=== PATIENT | female | born 1940 | race Caucasian/White ===

== ENCOUNTER → 2016-09-15 | Outpatient (CLI) | payer OTHER, MEDICARE ==
[2016-04-27 10:54] VITALS: BP 152/83
--- NOTE | 2016-09-18 11:25 | MRI ---
HISTORY: Left sciatica, low back pain Study: MRI lumbar spine without contrast Comparison: February 02, 2014 Technique: Multiplanar multi-sequence MRI of the lumbar spine was obtained. Sagittal T1, sagittal T 2, and stir weighted images, axial T1, and axial T2 images were obtained. Findings: There is a compression fracture of L2 which is old. The lumbar spine demonstrates normal alignment w ith the expected signal characteristics of the bone marrow. The conus of the cord terminates normal ly. T12 -- L1: No evidence for compressive disc disease. Neural foramina are patent. The joints are norm al. L1 -- L2: There is mild concentric disc bulging which contributes along with bilateral facet arthrop athy to mild lateral recess narrowing bilaterally. L2 -- L3: There is mild concentric disc bulging which contributes along with bilateral facet arthrop athy to mild lateral recess narrowing bilaterally right greater than left. L3 -- L4: No evidence for compressive disc disease. The neural foramina are patent. Mild facet arthr opathy is present. L4 -- L5: Mild concentric disc bulging is present. It contributes along with bilateral facet arthrop athy to mild lateral recess narrowing bilaterally. L5 -- S1: Broad-based disk bulging is present. It contributes along with facet arthropathy to mild l ateral recess narrowing on the right peer E there is a focal left lateral disc protrusion which cont ributes to significant lateral recess and foraminal narrowing on the left where it abuts the right n erve root ganglion. IMPRESSION: As above Reported By:
--- NOTE | 2016-09-19 09:38 | MRI ---
MR left hip without contrast Indication: Lower back pain radiating to the left hip. Comparison: January 23, 2014 MR pelvis. Technique: Multiplanar multi sequence imaging through the left hip without contrast. Findings: Mild symphysis pubis DJD is noted. Mild bilateral hip joint degenerative changes noted. Mi ld SI joint and lumbar spine DJD seen, with disc space narrowing partially visualize but worse at L5 -S1. Deep soft tissues of the pelvis appear normal. Neurovascular structures are normal. Fraying of the right superior acetabular labrum suspected. The left acetabulum labrum is relatively intact. Mil d bilateral gluteus medius tendinosis. The hamstring tendons are intact. Impression: 1. Mild bilateral hip joint degenerative change, gluteus medius tendinosis and trace greater trochan teric bursitis. 2. Probable tear of the right superior acetabular labrum. Chronic fraying of the left anterior and s uperior acetabular labrum without displaced tear or paralabral cyst. 3. Partially visualized SI joint and lumbar spine degenerative changes. Reported By:
== END | disposition home or self-care (01) ==
LOC: RAD 12:38
PROVIDERS: ATTEND Internal Medicine
DX: M51.26 Other intervertebral disc displacement, lumbar region (principal); M51.27 Other intervertebral disc displacement, lumbosacral region; M25.552 Pain in left hip
CPT/HCPCS: 72148; 73721

== ENCOUNTER → 2016-11-27 | Outpatient (CLI) | payer OTHER, MEDICARE ==
[2016-04-27 10:54] VITALS: BP 152/83
--- NOTE | 2016-11-27 17:17 | MG ---
Examination: Bilateral screening mammogram. Clinical history: Routine screening. Technique: Digital CC and MLO views of both breasts were obtained. Computer aided detection analysis was performed and used during the interpretation. Comparison: 11/25/2015. Findings: The breasts are composed of scattered fibroglandular densities. Benign-appearing calcifications and v ascular calcifications are noted in the breasts bilaterally. No suspicious mass, area of architectural distortion or suspicious cluster of microcalcifications is noted. Impression: 1. No mammographic evidence of malignancy. BI-RADS category 2-benign findings. Recommend routine annual screening mammogram. Diagnostic CAD was utilized and reviewed. * 0 (ZERO) - ASSESSMENT INCOMPLETE; ADDITIONAL IMAGING IS NEEDED. * 0C - ASSESSMENT INCOMPLETE, NEEDS ADDITIONAL IMAGING EVALUATION AND/OR PRIOR MAMMOGRAMS FOR COMPARI SON. * 1/1 (ONE) - NEGATIVE. * 2/II (TWO) - BENIGN FINDINGS. * 3/III (THREE) - PROBABLY BENIGN FINDING; SHORT INTERVAL FOLLOW-UP SUGGESTED. * 4/IV (FOUR) - SUSPICIOUS ABNORMALITY; BIOPSY SHOULD BE CONSIDERED. * 5/V - HIGHLY SUSPICIOUS OF MALIGNANCY; BIOPSY SHOULD BE PERFORMED. * 6/ - KNOWN BIOPSY PROVEN MALIGNANCY-APPROPRIATE ACTION SHOULD BE TAKEN. A NEGATIVE X-RAY REPORT SHOULD NOT DELAY BIOPSY IF A DOMINANT OR CLINICALLY SUSPICIOUS MASS IS PRESENT; 4 TO 8 PERCENT OF CANCERS ARE NOT IDENTIFIED BY X-RAY. A NEGATIVE REPORT MAY REINFORCE THE CLINICAL IMPRESSION. ADENOSIS AND DENSE BREASTS MAY OBSCURE AN UNDERLYING NEOPLASM. Reported By:
== END ==
LOC: RAD 09:32
PROVIDERS: ATTEND Specialist
DX: Z12.31 Encounter for screening mammogram for malignant neoplasm of breast (principal)
CPT/HCPCS: 77067

== ENCOUNTER 2016-11-30 07:09 | Day surgery (SDC) | payer OTHER, MEDICARE ==
[2016-11-30] MEDS ORDERED: D5 LR 1000 ML 1,000 ML IV ONE (07:15)
[2016-11-30] MEDS ORDERED: DIPRIVAN VIAL 20 ML ONE (08:51)
[2016-11-30 09:39] VITALS: BP 142/77
== END 2016-11-30 09:35 | disposition home or self-care (01) ==
LOC: SURG1 07:09
PROVIDERS: ATTEND Internal Medicine Gastroenterology
PROC: 0DBE8ZX Excision of Large Intestine, Via Natural or Artificial Opening Endoscopic, Diagnostic (ICD-10-PCS; principal; 2016-11-30 12:00)
PROC: 0DJD8ZZ Inspection of Lower Intestinal Tract, Via Natural or Artificial Opening Endoscopic (ICD-10-PCS; principal; 2016-11-30 12:00)
DX: R19.4 Change in bowel habit (principal); D50.8 Other iron deficiency anemias; K57.30 Diverticulosis of large intestine without perforation or abscess without bleeding; K64.0 First degree hemorrhoids
CPT/HCPCS: 99100; A4217; J3490; J7120

== ENCOUNTER 2017-07-17 20:39 | Emergency (ER) | payer OTHER, MEDICARE ==
[2017-07-17] MEDS ORDERED: ADACEL TDaP IM ONE ×2 (20:53→21:32)
--- NOTE | 2017-07-17 20:55 | DR.LACERAT ---
HPI - Time Seen Time seen: 20:55 - Primary Care Physician Primary Care Physician: CRIS - HPI Comment HPI Comment: DENIES NECK PAIN. HAVE HEADACHE. TD NOT UTD. - Complaints Chief Complaint Doctors Comments: FELL AT HOME TONIGHT WHEN SHE MISS A STEP. HIT RIGHT FOREHEAD. 2CM LAC RT EYEBROW. Chief Complaint:: "I MISSED THE LAST STEP WALKING FROM THE HOUSE AND FELL ONTO THE CONCRETE." THE RIGHT SIDE OF MY FACE HIT. PATIENT DENIES ANY LOC. NOTED SMALL LAC TO RIGHT OVER THE EYEBROW/CORNER OF EYE. MINIMAL AMOUNT OF BRUISING NOTED. - Reviewed Nurses Notes Reviewed: Yes - Source History Provided: Patient - Mode of Arrival Mode of Arrival: Wheelchair - Timing Onset of Chief Complaint: 07/17/17 - Context Mechanism: Fall Tetanus Vaccination: No - Severity Pain Severity: Moderate Bleeding:: Controlled - Associated Signs and Symptoms Associated Signs and Symptoms: None PMH - PMH Past Medical History: Yes Past Medical History: Anemia, Arthritis, Depression, Dyslipidemia, GERD, Hypertension Past Medical History Comment: HISTORY OF LUNG CA Past Surgical History: Yes Surgical History: Hysterectomy, Ortho Surgery Past Surgical History Comment: BILATERAL KNEE REPLACEMENT, BILATERAL HAND SURGERY (JOINTS REPLACED), BACK SURGERY, LEFT LOWER LOBE OF LUNG REMOVED DUE TO CANCER - Family History History of Family Medical Conditions: Yes Family Medical History: Hypertension - Social History Does patient currently use any type of tobacco product: No Have you used tobacco products in the last 12 months: No Type of Tobacco Use: None Does any household member use tobacco: No Alcohol Use: None Do you use any recreational Drugs:: No Lives Where: Home - infectious screening Have you traveled outside the country in the last 6 months?: No Isolation: Standard ROS - Review of Systems Constitutional: No Symptoms Reported. negative: Chills, Fever, Weakness, Fatigue Eyes: No Symptoms Reported. negative: Eye Pain, Blurred Vision, Discharge, Photophobia ENTM: No Symptoms Reported. negative: Ear Discharge, Nose Discharge, Nose Congestion, Throat Pain Respiratoy: No Symptoms Reported. negative: Productive Cough, Non-Productive Cough, Short of Breath, Wheezing, Hemoptysis Cardiovascular: No Symptoms Reported Gastrointestinal/Abdominal: No Symptoms Reported Genitourinary: No Symptoms Reported Neurological: No Symptoms Reported Musculoskeletal: No Symptoms Reported Integumentary: Other (2CM LAC RT EYEBROW.) Hematologic/Lymphatic: No Symptoms Reported Endocrine: No Symptoms Reported All Other Systems: Reviewed and Negative PE - Vital Signs Vitals: Temperature 98.1 F Pulse Rate [Right Brachial] 68 Pulse Rate 83 Respiratory Rate 16 Blood Pressure [Left Arm] 157/78 Blood Pressure [Right Arm] 149/67 Blood Pressure 186/83 O2 Sat by Pulse Oximetry 98 - General Limitations: No Limitations General Appearance: Alert - Head Head Exam: Other (2CM LAC RT EYEBROW) - Eyes Eye exam: PERRL, EOMI, Periorbital Tenderness (RT). negative: Conjunctival Injection, Periorbital Swelling - ENT ENT Exam: Normal External Ear Exam - Neck Neck Exam: Trachea Midline - Chest Chest Inspection: Symmetric Chest Wall Rise - Respiratory Respiratory Exam: Normal Lung Sounds Bilat Respiratory Exam: Bilateral Clear to Auscultation - Cardiovascular Cardiovascular Exam: Regular Rate, Normal Rhythm, Normal Heart Sounds - Abdominal Exam Abdominal Exam: Normal Bowel Sounds, Soft. negative: Tenderness - Extremities Extremities Exam: Normal Inspection - Back Back Exam: Normal Inspection - Neurologic Neurological Exam: Alert, Oriented X3 - Psychiatric Psychiatric Exam: Normal Affect, Normal Mood - Skin Skin Exam: Erythema Type of Lesion: Laceration (2CM LAC RT EYEBROW.) MDM - Additional Information Obtained Additional Information Obtained From: Family - Differential Diagnosis Differential Diagnosis: Contusion, Laceration, Fracture Course - Treatment Treatment: SEE ORDERS. - Education/Counseling Education/Counseling: Patient, Family, Education Educated On: Diagnosis, Needs for Follow Up ROR - XRAY XRAY Interpreted by: Radiologist XRAY Findings: REPORT DISCUSS WITH PATIENT AND FAMILY. Procedures - Laceration/Wound Repair Right Face Wound Length (cm): 2 Wound's Depth, Shape: Linear Wound Explored: clean Betadine Prep?: Yes Anesthesia: 1% Lidocaine Volume Anesthetic (ccs): 2 Wound Debrided: moderate Wound Repaired With: sutures Suture Size/Type: 4:0, [place] Number of Sutures: 5 Layer Closure?: No Sterile Dressing Applied?: Yes Splint Applied?: No Sling Applied?: No - Diagnosis Discharge Problem: Laceration of right eyebrow Qualifiers: Encounter type: initial encounter Qualified Code(s): S01.111A - Laceration without foreign body of right eyelid and periocular area, initial encounter - Discharge Plan Disposition: 01 HOME, SELF-CARE Condition: Stable - Follow ups/Referrals Follow ups/Referrals: Gilberto Hennessy [Primary Care Provider] - 3 days - Instructions Instructions: Laceration Care, Adult, [id number] Additional Instructions: RETURN TO ED IN 7 TO 10 DAYS. SUTURE OUT IN ONE WEEK.
[2017-07-17 20:56] VITALS: BMI 25.0
[2017-07-17] MEDS ORDERED: XYLOCAINE 1 % (PLAIN) ONE (21:29)
[2017-07-17] MEDS ORDERED: HYDROGEN PEROXIDE 3% ONE (21:33)
--- NOTE | 2017-07-17 21:37 | CT ---
HISTORY: Fall, right supraorbital laceration Study: CT brain without contrast Comparison: 04/21/2014 Technique: Multiple axial images of the brain were obtained from the skull base to the vertex without administra tion of IV contrast. Dose reduction techniques including Automated Exposure Control (AEC) and adjust ment of mA and kV were utilized. Findings: The brain parenchyma is within normal limits for patient's age. No evidence of acute hemorrhage, mid line shift, mass effect or abnormal extra-axial fluid collection. The ventricular system is symmetri c and nondilated. The soft tissues and osseous structures are unremarkable. The visualized paranasal sinuses are clear. IMPRESSION: 1.No acute intracranial abnormality. Reported By:
[2017-07-17 21:47] VITALS: BP 149/67
[2017-07-17] MEDS ORDERED: NEOSPORIN OINT ONE (21:50)
== END 2017-07-17 21:55 | disposition home or self-care (01) ==
LOC: ER 20:48
PROC: 0WQ2XZZ Repair Face, External Approach (ICD-10-PCS; principal; 2017-07-17)
DX: S01.111A Laceration without foreign body of right eyelid and periocular area, initial encounter (principal); W01.198A Fall on same level from slipping, tripping and stumbling with subsequent striking against other object, initial encounter; Y92.009 Unspecified place in unspecified non-institutional (private) residence as the place of occurrence of the external cause
CPT/HCPCS: 70450; 90471; 99283; J2001

== ENCOUNTER 2022-04-02 20:09 | Observation (INO) ==
--- NOTE | 2022-04-02 21:18 | CT ---
HISTORYFALL 4 DAYS AGOSTUDYHEAD (TRAUMA)COMPARISONApril 2017.TECHNIQUECT scan of the brain was obtained from skull base to vertex without contrast. Dose reduction techniques were utilized.Contrast: NoneFINDINGSThere is a large midline posterior parietal subgaleal hematoma and scalp hemorrhagic contusion. There is diffuse cerebral and cerebellar volume loss. There is scattered patchy hypodensity in the hemispheric white matter. While these are nonspecific findings, this most likely represents microvascular ischemic disease changes. There is no evidence of intracranial hemorrhage or mass-effect. No extra-axial fluid collections are identified.There are extensive atherosclerotic changes noted of the cavernous carotid arteries.Skull base and calvarium are intact. Paranasal sinuses are clear.IMPRESSIONLarge midline posterior parietal subgaleal hematoma and scalp hemorrhagic contusion. No evidence of acute intracranial pathology. Diffuse generalized cerebral atrophy. Microvascular ischemic disease changes.Electronically signed by: Saundra Soares (Apr 02, 2022 21:17:21)
--- NOTE | 2022-04-02 21:40 | CT ---
EXAM: CT ABDOMEN AND PELVIS WITHOUT INTRAVENOUS CONTRASTHISTORY: Pain. Fall injury 4 days ago.TECHNIQUE: Spiral axial CT images are obtained through the abdomen and pelvis without the administration of intravenous contrast. Additional coronal and sagittal reformatted images are reconstructed.DOSIMETRY: Total DLP 353.49 mGycm; CTDI 4.48 mGyCOMPARISON: CT abdomen pelvis dated April 15, 2019.FINDINGS:ABDOMINAL/PELVIS WALL: There is interval appearance of a large, approximately 25 cm CC by up to 4.1 cm AP by up to 12 cm transverse, left rectus sheath hematoma.GASTROINTESTINAL TRACT: There is no evidence for bowel herniation, bowel obstruction, colitis or diverticulitis. A normal-appearing appendix is seen. Abundant fecal material is seen within the right-sided large bowel loops and rectum; rule out constipation.GENITOURINARY SYSTEM: There are stable bilateral parapelvic renal cysts. The kidneys are otherwise unremarkable. There is no ureteral calculus or stigmata of obstructive uropathy. The urinary bladder is grossly unremarkable for a non-dedicated exam.CT ABDOMEN: The liver, spleen, pancreas, adrenal glands, gallbladder, aorta, and inferior vena cava are within normal limits for a noncontrast CT scan. There is no intra-abdominal or retroperitoneal lymphadenopathy, free fluid, or free air seen. No abdominal herniation is noted.CT PELVIS: No pelvic sidewall or inguinal lymphadenopathy is seen. No inguinal herniation is noted. No free fluid or free air is seen.BONES AND JOINTS: There is a chronic stable gallstone/mild superior endplate compression fracture of the L2 vertebral body. Multilevel DDD is seen in the distal thoracic and lumbar spine. The visualized bony structures are otherwise within normal limits.LUNG BASES: The lung bases are clear.IMPRESSION:1. Interval appearance of a large, approximately 25 cm CC by up to 4.1 cm AP by up to 12 cm transverse, left rectus sheath hematoma.2. No gross acute intra-abdominal/pelvic abnormality seen.3. No evidence for renal stone disease or obstructive uropathy.4. No evidence for acute appendicitis, bowel herniation/obstruction, colitis or diverticulitis seen.5. Abundant fecal material is seen within the right-sided large bowel loops and rectum; rule out constipation.6. No free fluid, free air, mass lesions, or lymphadenopathy seen.Electronically signed by: Johnnie Wang (Apr 02, 2022 21:39:06)
[2022-04-02] MEDS ORDERED: MORPHINE SULFATE INJ 2 MG INJ IM ONE (21:43)
[2022-04-02] MEDS ORDERED: MORPHINE SULFATE INJ 2 MG INJ ONE (21:45)
--- NOTE | 2022-04-02 21:59 | DR.EXTPAIN ---
HPI Time seen Time Seen by Provider: 04/02/22 21:59 PCP Primary Care Physician: KRISTINA CHOWDHURY HPI Comment HPI Comment: A 81 y/o female presenting with c/o Lt. lower ribarea pain. SHe had fallen at home on Sunday03/29/22. She states that she fell on her back, struck her head on the floor and her insides feel sore. She was poiting to her Lt. lower/lowest ribs laterally. She denies LOC. Complaint/Symptoms Chief Complaint:: PT AMBULATORY IN ED WITH C/O 8/10 "SHOOTING" LEFT RIB AREA PAIN THAT BECAME "UNBEARABLE" AROUND 1700 TODAY. PT STATES THAT ON Sunday03/29/22 SHE HAD A "BAD FALL" AND FELL FLAT ON HER BACK AND HER "INSIDES ARE SORE". PT DENIES DIRECT TRAUMA TO RIB AREA. PT DID HIT HEAD ON FLOOR AND NOW HAS KNOT ON BACK OF HEAD. COVID-19 Coronavirus risk:travel/contact w/high risk person: No Has patient experienced Coronavirus symptoms: No Nurses notes reviewed Nurses Notes Review: Yes Source History Provided: Patient Mode of arrival Mode of Arrival: Ambulatory Timing Onset of Chief Complaint: 03/29/22 Context History of: None Associated signs and symptoms Associated Signs and Symptoms: None PMH PMH Past Medical History: Yes Past Medical History: Anemia, Arthritis, Depression, Dyslipidemia, GERD and Hypertension Past Medical History Comment: LUNG CA, CHRONIC COUGH Past Surgical History: Yes Surgical History: Hysterectomy, Joint Replacement and Ortho Surgery Past Surgical History Comment: BILAT KNEE REPLACEMENT, BILAT CATARACTS Family History History of Family Medical Conditions: Yes Family Medical History: Hypertension Social History Type of Tobacco Use: None Alcohol Use: None Do you use any recreational Drugs:: No Lives Where: Home Travel Risk Coronavirus risk:travel/contact w/high risk person: No Has patient experienced Coronavirus symptoms: No Infectious screening Have you traveled outside the country in the last 6 months?: No Isolation: Standard ROS Review of Systems Constitutional: No Symptoms Reported Eyes: No Symptoms Reported ENTM: No Symptoms Reported Respiratoy: No Symptoms Reported Cardiovascular: No Symptoms Reported Gastrointestinal/Abdominal: No Symptoms Reported Genitourinary: No Symptoms Reported Neurological: No Symptoms Reported Musculoskeletal: No Symptoms Reported Integumentary: No Symptoms Reported Hematologic/Lymphatic: No Symptoms Reported Endocrine: No Symptoms Reported Psychiatric: No Symptoms Reported All Other Systems: Reviewed and Negative PE Vital Signs Vitals: Temperature 97.6 F Pulse Rate 103 Respiratory Rate 18 Blood Pressure [Left Arm] 157/78 Blood Pressure [Right Arm] 149/67 Blood Pressure 150/82 O2 Sat by Pulse Oximetry 95 General Limitations: No Limitations General Appearance: Alert and In No Apparent Distress Head Head Exam: Normal Inspection Eyes Eye exam: Normal Appearance ENT ENT Exam: Normal Exam Neck Neck Exam: Normal Inspection Chest Chest Inspection: Normal Inspection Respiratory Respiratory Exam: Normal Lung Sounds Bilat Cardiovascular Cardiovascular Exam: Regular Rate and Normal Rhythm Abdominal Exam Abdominal Exam: Normal Inspection, Normal Bowel Sounds and Soft Extremities Extremities Exam: Normal Inspection Back Back Exam: Normal Inspection Neurological Neurological Exam: Alert, Oriented X3 and CN II-XII Intact Psychiatric Psychiatric Exam: Normal Affect and Normal Mood Skin Skin Exam: Warm, Dry, Intact and Normal Color COURSE Treatment Treatment: Her diagnostic radiology reports were reviewed with her and family. I n the interim, analgesic was provided. 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 Admit orders were written. Reevaluation 1st: Improved Consultation Consultation Comments: Name: JARED ESPINOZA DAcct#: [id number]: [id number]: [id number]: FLocation: EROrder Number(s): [id number](s):HEAD (TRAUMA) Ordering Physician: LOLY DAVILA Primary Care: [facility] Service Date: 04/02/22 Service Time: 2054 HISTORY FALL 4 DAYS AGO STUDY HEAD (TRAUMA) COMPARISON July 17, 2017. TECHNIQUE CT scan of the brain was obtained from skull base to vertex without contrast. Dose reduction techniques were utilized. Contrast: None FINDINGS There is a large midline posterior parietal subgaleal hematoma and scalp hemorrhagic contusion. There is diffuse cerebral and cerebellar volume loss. There is scattered patchy hypodensity in the hemispheric white matter. While these are [email or web address] findings, this most likely represents microvascular ischemic disease changes. There is no evidence of intracranial hemorrhage or mass-effect. No extra-axial fluid collections are identified. There are extensive atherosclerotic changes noted of the cavernous carotid arteries. Skull base and calvarium are intact. Paranasal sinuses are clear. IMPRESSION Large midline posterior parietal subgaleal hematoma and scalp hemorrhagic contusion. No evidence of acute intracranial pathology. Diffuse generalized cerebral atrophy. Microvascular ischemic disease changes. Electronically signed by: Saundra Soares (Apr 02, 2022 21:17:21) Report Electronically signed: 04/02/[id number] CC: Loly Davila ROR Labs Reviewed Result Diagrams: 04/02/22 22:35 Opioid Opioid Risk Tool Age (Damien box if 16-45): No History of Preadolescent Sexual Abuse: No Total: 0 Total Score Risk Category: Low Risk Copyright: [facility] predicting aberrant behaviors Discharge Plan Diagnosis Discharge Problem: Hematoma of abdominal wall, Hematoma of parietal scalp, Essential hypertension Discharge Plan Patient Disposition: 09 ADMITTED INPATIENT Condition: Stable Orders to Discharge Patient Discharge Orders: Transfer (Routine); Ordered 04/02/22 Ordered By: LOLY DAVILA ADDITIONAL NOTES Additional Notes Additional Notes: Name: JARED ESPINOZA DAcct#: [id number]: [id number]: [id number]: FLoca tion: EROrder Number(s): [id number](s):ABDOMEN/PELVIS W/O CON Ordering Physician: LOLY DAVILA Primary Care: Kristina Chowdhury Service Date: 04/02/22 Service Time: 2049 EXAM: CT ABDOMEN AND PELVIS WITHOUT INTRAVENOUS CONTRAST HISTORY: Pain. Fall injury 4 days ago. TECHNIQUE: Spiral axial CT images are obtained through the abdomen and pelvis without the administration of intravenous contrast. Additional coronal and sagittal reformatted images are reconstructed. DOSIMETRY: Total DLP 353.49 mGycm; CTDI 4.48 mGy COMPARISON: CT abdomen pelvis dated April 15, 2019. FINDINGS: ABDOMINAL/PELVIS WALL: There is interval appearance of a large, approximately 25 cm CC by up to 4.1 cm AP by up to 12 cm transverse, left rectus sheath hematoma. GASTROINTESTINAL TRACT: There is no evidence for bowel herniation, bowel obstruction, colitis or diverticulitis. A normal-appearing appendix is seen. Abundant fecal material is seen within the right-sided large bowel loops and rectum; rule out constipation. GENITOURINARY SYSTEM: There are stable bilateral parapelvic renal cysts. The kidneys are otherwise unremarkable. There is no ureteral calculus or stigmata of obstructive uropathy. The urinary bladder is grossly unremarkable for a non-dedicated exam. CT ABDOMEN: The liver, spleen, pancreas, adrenal glands, gallbladder, aorta, and inferior vena cava are within normal limits for a noncontrast CT scan. There is no intra-abdominal or retroperitoneal lymphadenopathy, free fluid, or free air seen. No abdominal herniation is noted. CT PELVIS: No pelvic sidewall or inguinal lymphadenopathy is seen. No inguinal herniation is noted. No free fluid or free air is seen. BONES AND JOINTS: There is a chronic stable gallstone/mild superior endplate compression fracture of the L2 vertebral body. Multilevel DDD is seen in the distal thoracic and lumbar spine. The visualized bony structures are otherwise within normal limits. LUNG BASES: The lung bases are clear. IMPRESSION: 1. Interval appearance of a large, approximately 25 cm CC by up to 4.1 cm AP by up to 12 cm transverse, left rectus sheath hematoma. 2. No gross acute intra-abdominal/pelvic abnormality seen. 3. No evidence for renal stone disease or obstructive uropathy. 4. No evidence for acute appendicitis, bowel herniation/obstruction, colitis or diverticulitis seen. 5. Abundant fecal material is seen within the right-sided large bowel loops and rectum; rule out constipation. 6. No free fluid, free air, mass lesions, or lymphadenopathy seen. Electronically signed by: Johnnie Wang (Apr 02, 2022 21:39:06) Report Electronically signed: 04/02/22 [id number] CC: Loly Davila
[2022-04-02 22:48] LABS: HEMATOCRIT 31.1 % (36.0-47.0); WHITE BLOOD COUNT 7.5 X10^3/uL (3.6-10.0)
[2022-04-02 23:08] LABS: BASOPHILS % (AUTO) 0.4 % (0.2-1.0); EOSINOPHILS # (AUTO) 0.1 x10^3/uL (0.0-0.2); EOSINOPHILS % (AUTO) 0.8 % (0.9-2.9); HEMOGLOBIN 10.2 g/dL (12.0-16.0); LYMPHOCYTES # (AUTO) 1.1 X10^3/uL (1.3-2.9); LYMPHOCYTES % (AUTO) 14.1 % (21.0-51.0); MEAN CORPUSCULAR HGB CONC 32.8 g/dL (33.0-35.0); MEAN CORPUSCULAR VOLUME 82.3 fL (80.0-100.0); MONOCYTES # (AUTO) 0.6 x10^3/uL (0.3-0.8); MONOCYTES % (AUTO) 8.2 % (0.0-13.0); NEUTROPHILS # (AUTO) 5.8 x10^3/uL (2.2-4.8); NEUTROPHILS % (AUTO) 76.5 % (42.0-75.0); RED BLOOD COUNT 3.78 X10^6/uL (3.5-5.4); RED CELL DISTRIBUTION WIDTH 13.7 % (11.6-16.5)
[2022-04-02 23:18] LABS: INR 1.18 (0.8-1.3)
[2022-04-02 23:22] LABS: ALANINE AMINOTRANSFERASE 33 Units/L (12-78); ALBUMIN 3.4 g/dL (3.4-5.0); ALKALINE PHOSPHATASE 36 Units/L (46-116); ASPARTATE AMINO TRANSFERASE 68 Units/L (15-37); BLOOD UREA NITROGEN 40 mg/dL (7-18); CALCIUM 8.8 mg/dL (8.5-10.1); CARBON DIOXIDE 29.5 mmol/L (21-32); CHLORIDE 103 mmol/L (98-107); CREATININE 1.28 mg/dL (0.55-1.02); SODIUM 140 mmol/L (136-145); TOTAL PROTEIN 6.8 g/dL (6.4-8.2); eGFR NON BLACK RACES 43 (>60)
[2022-04-02] MEDS ORDERED: NS 1,000 ML IV 1,000 ML ONE (23:24)
[2022-04-02] MEDS: NS 1,000 ML IV 1,000 ML IV SCH (23:37)
[2022-04-02] MEDS ORDERED: CATAPRES TAB 0.1 MG PO ONE (23:56)
[2022-04-03] MEDS: NORVASC TAB 5 MG PO SCH ×2 (00:26→20:48)
[2022-04-03 00:54] VITALS: BMI 25.9
[2022-04-03] MEDS: MORPHINE SULFATE INJ 2 MG INJ IVP PRN ×3 (04:14→18:25)
[2022-04-03 05:29] LABS: BASOPHILS % (AUTO) 0.7 % (0.2-1.0); EOSINOPHILS % (AUTO) 0.7 % (0.9-2.9); HEMATOCRIT 28.2 % (36.0-47.0); HEMOGLOBIN 9.5 g/dL (12.0-16.0); LYMPHOCYTES % (AUTO) 16.7 % (21.0-51.0); MEAN CORPUSCULAR HEMOGLOBIN 27.7 pg (27.0-34.0); MEAN CORPUSCULAR HGB CONC 33.9 g/dL (33.0-35.0); MEAN CORPUSCULAR VOLUME 81.6 fL (80.0-100.0); MEAN PLATELET VOLUME 7.1 fL (7.4-11.0); MONOCYTES # (AUTO) 0.6 x10^3/uL (0.3-0.8); MONOCYTES % (AUTO) 9.5 % (0.0-13.0); NEUTROPHILS # (AUTO) 4.5 x10^3/uL (2.2-4.8); NEUTROPHILS % (AUTO) 72.4 % (42.0-75.0); RED BLOOD COUNT 3.45 X10^6/uL (3.5-5.4); RED CELL DISTRIBUTION WIDTH 13.6 % (11.6-16.5); WHITE BLOOD COUNT 6.2 X10^3/uL (3.6-10.0)
[2022-04-03 05:43] LABS: ALANINE AMINOTRANSFERASE 25 Units/L (12-78); ALBUMIN 3.1 g/dL (3.4-5.0); ALKALINE PHOSPHATASE 34 Units/L (46-116); ASPARTATE AMINO TRANSFERASE 58 Units/L (15-37); BLOOD UREA NITROGEN 35 mg/dL (7-18); CALCIUM 8.4 mg/dL (8.5-10.1); CARBON DIOXIDE 29.9 mmol/L (21-32); CHLORIDE 104 mmol/L (98-107); COR CA(FOR HYPOALB) 9.1 mg/dL (8.5-10.1); CREATININE 1.09 mg/dL (0.55-1.02); SODIUM 140 mmol/L (136-145); TOTAL PROTEIN 6.3 g/dL (6.4-8.2); eGFR NON BLACK RACES 51 (>60)
[2022-04-03] MEDS: NS 1,000 ML IV 1,000 ML IV SCH ×2 (12:04→20:49)
--- NOTE | 2022-04-03 13:53 | CT ---
HISTORYS/P FALL C/O UPPER, LEFT BACK PAINSTUDYTHORACIC SPINE W/O CONCOMPARISONNoneTECHNIQUEMultiple axial images of the thoracic spine were obtained from the thoracic inlet to the thoracolumbar junction. Sagittal and coronal reconstructions were performed and reviewed. Dose reduction techniques including Automated Exposure Control (AEC) and adjustment of mA and kV were utilized.FINDINGSMild thoracolumbar levocurvature. Normal AP alignment of the thoracic spine. Mild multilevel thoracic spine degenerative changes. Remote deformity of L2. No acute thoracic spine fracture.Scattered vascular calcifications. Parapelvic cysts in the kidneys. No acute soft tissue abnormality.IMPRESSIONMild thoracic spine degenerative changes without acute fracture.Electronically signed by: SOLEDAD SHAFER (Apr 03, 2022 13:52:02)
--- NOTE | 2022-04-03 13:55 | CT ---
HISTORYS/P FALL, C/O NECK PAINSTUDYCERVICAL SPINE W/O CONCOMPARISONThoracic spine same dayTECHNIQUEMultiple axial images of the cervical spine were obtained from the skull base to the thoracic inlet without administration of IV contrast. Sagittal and coronal reformats were performed and reviewed. Dose reduction techniques including Automated Exposure Control (AEC) and adjustment of mA and kV were utilized.FINDINGSNormal cervical spinal alignment. Mild multilevel cervical spine degenerative changes. No acute cervical spine fracture.Scattered vascular calcifications. No acute soft tissue abnormality.IMPRESSIONNo evidence for traumatic injury of the cervical spine.Electronically signed by: SOLEDAD SHAFER (Apr 03, 2022 13:53:15)
[2022-04-03] MEDS: TESSALON PERLES PO SCH ×3 (14:50→21:08)
[2022-04-03] MEDS: PROTONIX INJ 40 MG VIAL IVP SCH ×2 (14:50→21:24)
[2022-04-03] MEDS: MIRALAX POWDER (1 DOSE 17 G) PO SCH ×2 (14:50→20:46)
[2022-04-03] MEDS: COZAAR PO SCH (15:14)
[2022-04-03 15:41] LABS: BASOPHILS % (AUTO) 0.4 % (0.2-1.0); EOSINOPHILS # (AUTO) 0.1 x10^3/uL (0.0-0.2); EOSINOPHILS % (AUTO) 1.1 % (0.9-2.9); HEMATOCRIT 29.7 % (36.0-47.0); HEMOGLOBIN 9.7 g/dL (12.0-16.0); LYMPHOCYTES # (AUTO) 1.3 X10^3/uL (1.3-2.9); MEAN CORPUSCULAR HEMOGLOBIN 27.1 pg (27.0-34.0); MEAN CORPUSCULAR HGB CONC 32.8 g/dL (33.0-35.0); MEAN CORPUSCULAR VOLUME 82.6 fL (80.0-100.0); MEAN PLATELET VOLUME 6.9 fL (7.4-11.0); MONOCYTES # (AUTO) 0.7 x10^3/uL (0.3-0.8); MONOCYTES % (AUTO) 10.7 % (0.0-13.0); NEUTROPHILS # (AUTO) 4.6 x10^3/uL (2.2-4.8); NEUTROPHILS % (AUTO) 68.8 % (42.0-75.0); RED BLOOD COUNT 3.59 X10^6/uL (3.5-5.4); RED CELL DISTRIBUTION WIDTH 13.8 % (11.6-16.5); WHITE BLOOD COUNT 6.8 X10^3/uL (3.6-10.0)
--- NOTE | 2022-04-03 17:38 | DR.H&P ---
H&P - History & Physical for Day of: H&P Date: 04/02/22 - Chief Complaint Chief Complaint: ABDOMINAL PAIN, HEADACHE (HX RECENT TRAUMATIC FALL) - History of Present Illness History of Present Illness: PT IS 81 WF, ER ADMISSION AFTER PRESENTING WITH CO SUDDEN ONSET OF SEVERE LEFT ABDOMINAL PAIN THAT STARTED DUING A COUGHING SPELL. PT HAD A TRAUMATIC FALL LAST WEEK WITH A HEAD, NECK AND BACK INJURY. PT HAD A CT OF ABDPELVIS IN ER REVEALED A LARGE HEMATOMA TO ABDOMINAL MUSLCE AND SCALP. PT ADMITTED FOR TREATMENT AND EVALUATION OF ACUTE INJURY. - Past Medical History Past Medical History: Hypertension, Dyslipidemia, Depression, Anemia, GERD, Arthritis Additional Medical History: HS OF UTI'S, KIDNEY STONES, HX OF HYPOTENSION S/P SURGERY - Past Surgical History Surgical History: Hysterectomy Additional Surgical History: LEFT LUNG LOWER LOBECTOMY, CATARACT REMOVAL - Family History Family Medical History: Cancer, Sudden Cardiac - Social History Does patient currently use any type of tobacco product: No Have you used tobacco products in the last 12 months: No Type of Tobacco Use: None Alcohol Use: None Drug Use: None - Medications Home Medications: Sulfa (Sulfonamide Antibiotics) [SULFA] Allergy (Intermediate, Verified 12/29/21 07:26) ANAPHALEXIS REACTION cefdinir [From Omnicef] Allergy (Unknown, Verified 12/29/21 07:26) ceftriaxone [From Rocephin] Allergy (Unknown, Verified 12/29/21 07:26) CONTINUE taking the following medications amlodipine 5 mg tablet 5 mg PO QPM 04/02/22 [History] clonidine HCl 0.1 mg tablet 0.1 mg PO DAILY PRN 04/02/22 [History] fenofibrate 120 mg tablet 120 mg PO QDAY 04/02/22 [History] losartan 100 mg tablet 100 mg PO QDAY 04/02/22 [History] montelukast 10 mg tablet 10 mg PO QDAY 04/02/22 [History] polyethylene glycol 3350 17 gram oral powder packet (Miralax) 17 g PO DAILY 04/02/22 [History] - Review of Systems Constitutional: Weakness Eyes: No Symptoms Reported ENT: No Symptoms Reported Respiratory: Cough, SOB with Excertion Gastrointestinal: Abdominal Pain Genitourinary: No Symptoms Reported Musculoskeletal: Back Pain, Neck Pain Skin: Bruising Neurological: Weakness - Physical Exam Vital Signs: Temperature 99.7 F Pulse Rate [Brachial] 73 Pulse Rate 103 Respiratory Rate 20 Blood Pressure [Left Arm] 140/66 Blood Pressure [Right Arm] 149/67 Blood Pressure 150/82 O2 Sat by Pulse Oximetry 99 Oriented: Normal Eyes: Normal Ear: Normal Nose: Normal Throat: Normal Respiratory: RLL Diminished, LLL Diminished Cardiovascular: Normal. negative: Edema : Normal Auscultation: Bowel Sounds: Normal Palpation: Other (LEFT ABDOMINAL TENDERNESS) Skin: Decreased Turgur, Bruising (DIFFUSE TO BASE OF EDMUNDO AND UPPER C SPINE. ) Musculoskeletal: Back:Thoracic, Back:Lumbar, Tender Psychiatric: Anxiety Affect: Anxious Speech Pattern: Clear, Appropriate - Assessment/Plan (1) Hematoma of abdominal wall Qualifiers: Encounter type: initial encounter Qualified Code(s): S30.1XXA - Contusion of abdominal wall, initial encounter Status: Acute Plan: ADMIT, GENTLE IV HYDRATION, PAIN CONTROL. BP CONTROL, MONITOR H&H, CONFIRM HOME MEDICATION. RESP TREATMENTS PRN, CT HEAD ON ADMISSION. CT ABD/PELVIS ON ADMISSION. DR SANDERS CONSULTING (2) Essential hypertension Status: Chronic (3) GERD (gastroesophageal reflux disease) Status: Chronic (4) Hematoma of parietal scalp Status: Acute - Allergies Allergies/Adverse Reactions: Allergies Allergy/AdvReac Type Severity Reaction Status Date / Time Sulfa (Sulfonamide Allergy Intermediate ANAPHALEXIS Verified 12/29/21 07:26 Antibiotics) REACTION [SULFA] cefdinir [From Omnicef] Allergy Unknown Verified 12/29/21 07:26 ceftriaxone [From Rocephin] Allergy Unknown Verified 12/29/21 07:26
[2022-04-03] MEDS: SYNTHROID 50 mcg TAB PO SCH (17:44)
[2022-04-03] MEDS: XANAX PO PRN (20:50)
[2022-04-04] MEDS: NS 1,000 ML IV 1,000 ML IV SCH (01:02)
[2022-04-04] MEDS: TESSALON PERLES PO SCH ×3 (05:03→21:07)
[2022-04-04] MEDS: MORPHINE SULFATE INJ 2 MG INJ IVP PRN ×2 (05:04→15:54)
[2022-04-04 05:21] LABS: BASOPHILS % (AUTO) 0.7 % (0.2-1.0); EOSINOPHILS # (AUTO) 0.1 x10^3/uL (0.0-0.2); EOSINOPHILS % (AUTO) 1.6 % (0.9-2.9); HEMATOCRIT 26.2 % (36.0-47.0); HEMOGLOBIN 8.9 g/dL (12.0-16.0); LYMPHOCYTES # (AUTO) 1.2 X10^3/uL (1.3-2.9); LYMPHOCYTES % (AUTO) 24.2 % (21.0-51.0); MEAN CORPUSCULAR HEMOGLOBIN 27.9 pg (27.0-34.0); MEAN CORPUSCULAR HGB CONC 34.1 g/dL (33.0-35.0); MEAN CORPUSCULAR VOLUME 81.8 fL (80.0-100.0); MEAN PLATELET VOLUME 6.9 fL (7.4-11.0); MONOCYTES # (AUTO) 0.7 x10^3/uL (0.3-0.8); MONOCYTES % (AUTO) 12.7 % (0.0-13.0); NEUTROPHILS # (AUTO) 3.1 x10^3/uL (2.2-4.8); NEUTROPHILS % (AUTO) 60.8 % (42.0-75.0); RED BLOOD COUNT 3.21 X10^6/uL (3.5-5.4); RED CELL DISTRIBUTION WIDTH 13.8 % (11.6-16.5); WHITE BLOOD COUNT 5.1 X10^3/uL (3.6-10.0)
[2022-04-04 05:28] LABS: ALANINE AMINOTRANSFERASE 25 Units/L (12-78); ALBUMIN 2.7 g/dL (3.4-5.0); ALKALINE PHOSPHATASE 32 Units/L (46-116); ASPARTATE AMINO TRANSFERASE 41 Units/L (15-37); BLOOD UREA NITROGEN 23 mg/dL (7-18); CALCIUM 8.1 mg/dL (8.5-10.1); CARBON DIOXIDE 29.4 mmol/L (21-32); CHLORIDE 104 mmol/L (98-107); COR CA(FOR HYPOALB) 9.1 mg/dL (8.5-10.1); CREATININE 1.04 mg/dL (0.55-1.02); SODIUM 139 mmol/L (136-145); TOTAL PROTEIN 5.8 g/dL (6.4-8.2); eGFR NON BLACK RACES 54 (>60)
[2022-04-04] MEDS: K-DUR TAB 20 MEQ PO PRN (06:17)
--- NOTE | 2022-04-04 08:33 | DR.PROGNOT ---
Hospital Progress Notes - Progress Note for Day of: Progress Note Date: 04/04/22 - Chief Complaint Chief Complaint: stable but significant Lt side abdominal pain . mild nausea ,no vomiting. Hgb 8.9. mild elevated BUN/Creat - Past Medical Family Social History Allergies: Allergies Sulfa (Sulfonamide Antibiotics) [SULFA] Allergy (Intermediate, Verified 12/29/21 07:26) ANAPHALEXIS REACTION cefdinir [From Omnicef] Allergy (Unknown, Verified 12/29/21 07:26) ceftriaxone [From Rocephin] Allergy (Unknown, Verified 12/29/21 07:26) - Review Of Systems ROS: No change since H&P - Vital Signs Vital Signs: Temperature 97.6 F Pulse Rate [Brachial] 99 Pulse Rate 103 Respiratory Rate 20 Blood Pressure [Left Arm] 159/70 Blood Pressure [Right Arm] 149/67 Blood Pressure 150/82 O2 Sat by Pulse Oximetry 95 - Physical Exam Oriented: Normal Eyes: Normal Ear: Normal Nose: Normal Throat: Normal Cardiovascular: Normal. negative: Edema : Normal GI:Auscultation: Normal GI:Palpation: Other (LEFT ABDOMINAL TENDERNESS) GI: Tenderness: Other (soft, flat abdomen with Lt side tenderness BS+) Skin: Decreased Turgur, Bruising (DIFFUSE TO BASE OF EDMUNDO AND UPPER C SPINE. ) Musculoskeletal: Back:Thoracic, Back:Lumbar, Tender Psychiatric: Anxiety Affect: Anxious Speech Pattern: Clear, Appropriate - Laboratory and Diagnostics Result Diagrams: 04/04/22 04:44 04/04/22 04:44 Labs: Laboratory WBC 5.1 X10^3/uL (3.6-10.0) 04/04/22 04:44 RBC 3.21 X10^6/uL (3.5-5.4) L 04/04/22 04:44 Hgb 8.9 g/dL (12.0-16.0) L 04/04/22 04:44 Hct 26.2 % (36.0-47.0) L 04/04/22 04:44 MCV 81.8 fL (80.0-100.0) 04/04/22 04:44 MCH 27.9 pg (27.0-34.0) 04/04/22 04:44 MCHC 34.1 g/dL (33.0-35.0) 04/04/22 04:44 RDW 13.8 % (11.6-16.5) 04/04/22 04:44 Plt Count 332 X10^3/uL (150.0-450.0) 04/04/22 04:44 MPV 6.9 fL (7.4-11.0) L 04/04/22 04:44 Neut % (Auto) 60.8 % (42.0-75.0) 04/04/22 04:44 Lymph % (Auto) 24.2 % (21.0-51.0) 04/04/22 04:44 [place] % (Auto) 12.7 % (0.0-13.0) 04/04/22 04:44 Eos % (Auto) 1.6 % (0.9-2.9) 04/04/22 04:44 Baso % (Auto) 0.7 % (0.2-1.0) 04/04/22 04:44 Neut # (Auto) 3.1 x10^3/uL (2.2-4.8) 04/04/22 04:44 Lymph # (Auto) 1.2 X10^3/uL (1.3-2.9) L 04/04/22 04:44 [place] # (Auto) 0.7 x10^3/uL (0.3-0.8) 04/04/22 04:44 Eos # (Auto) 0.1 x10^3/uL (0.0-0.2) 04/04/22 04:44 Baso # (Auto) 0.0 X10^3/uL (0.0-0.1) 04/04/22 04:44 Absolute Nucleated RBC 0.0 /100WBC 04/04/22 04:44 PT 14.6 SECONDS (11.8-14.3) 04/02/22 22:35 INR Target Range - 04/02/22 22:35 INR 1.18 (0.8-1.3) 04/02/22 22:35 APTT 27.9 SECONDS (22.9-36.5) 04/02/22 22:35 PTT Comment - 04/02/22 22:35 Sodium 139 mmol/L (136-145) 04/04/22 04:44 Corrected Sodium TNP 04/04/22 04:44 Potassium 3.8 mmol/L (3.5-5.1) 04/04/22 04:44 Chloride 104 mmol/L (98-107) 04/04/22 04:44 Carbon Dioxide 29.4 mmol/L (21-32) 04/04/22 04:44 BUN 23 mg/dL (7-18) H 04/04/22 04:44 Creatinine 1.04 mg/dL (0.55-1.02) H 04/04/22 04:44 Est GFR (MDRD) Af Amer > 60 (>60) 04/04/22 04:44 Est GFR (MDRD) Non-Af 54 (>60) L 04/04/22 04:44 Glucose 86 mg/dL (65-99) 04/04/22 04:44 Calcium 8.1 mg/dL (8.5-10.1) L 04/04/22 04:44 Corrected Calcium 9.1 mg/dL (8.5-10.1) 04/04/22 04:44 Total Bilirubin 0.40 mg/dL (0.2-1.0) 04/04/22 04:44 AST 41 Units/L (15-37) H 04/04/22 04:44 ALT 25 Units/L (12-78) 04/04/22 04:44 Alkaline Phosphatase 32 Units/L (46-116) L 04/04/22 04:44 Total Protein 5.8 g/dL (6.4-8.2) L 04/04/22 04:44 Albumin 2.7 g/dL (3.4-5.0) L 04/04/22 04:44 Globulin 3.1 g/dL (2.5-4.5) 04/04/22 04:44 Albumin/Globulin Ratio 0.9 Ratio (1.1-2.1) L 04/04/22 04:44 - Assessment and Plan 3: recent fall . abdominal wall hematoma ( stable ). occipital hematoma . CKD . to follow as out Pt . - Problem Patient Problems: Patient Problems Essential hypertension (Chronic) I10 GERD (gastroesophageal reflux disease) (Chronic) K21.9 Hematoma of abdominal wall (Acute) S30.1XXA Hematoma of parietal scalp (Acute) S00.03XA
[2022-04-04] MEDS: PROTONIX INJ 40 MG VIAL IVP SCH ×2 (09:08→20:50)
[2022-04-04] MEDS: MIRALAX POWDER (1 DOSE 17 G) PO SCH ×2 (09:08→20:49)
[2022-04-04] MEDS: COZAAR PO SCH (09:09)
[2022-04-04 13:22] LABS: BASOPHILS % (AUTO) 0.4 % (0.2-1.0); EOSINOPHILS # (AUTO) 0.1 x10^3/uL (0.0-0.2); EOSINOPHILS % (AUTO) 1.4 % (0.9-2.9); HEMATOCRIT 27.3 % (36.0-47.0); HEMOGLOBIN 9.2 g/dL (12.0-16.0); LYMPHOCYTES % (AUTO) 17.4 % (21.0-51.0); MEAN CORPUSCULAR HEMOGLOBIN 27.7 pg (27.0-34.0); MEAN CORPUSCULAR HGB CONC 33.7 g/dL (33.0-35.0); MEAN CORPUSCULAR VOLUME 82.3 fL (80.0-100.0); MEAN PLATELET VOLUME 6.7 fL (7.4-11.0); MONOCYTES # (AUTO) 0.7 x10^3/uL (0.3-0.8); MONOCYTES % (AUTO) 11.8 % (0.0-13.0); RED BLOOD COUNT 3.32 X10^6/uL (3.5-5.4); RED CELL DISTRIBUTION WIDTH 13.8 % (11.6-16.5); WHITE BLOOD COUNT 5.8 X10^3/uL (3.6-10.0)
[2022-04-04] MEDS: EFFEXOR XR 37.5 MG CAP 24-HR PO SCH (13:46)
--- NOTE | 2022-04-04 14:57 | CT ---
HISTORYABD PAINSTUDYABDOMEN/PELVIS W/O CONCOMPARISONCT abdomen and pelvis 04/02/2022TECHNIQUEMultiple CT axial images of the abdomen and pelvis were obtained without IV contrast. Coronal and sagittal images were reconstructed. Dose reduction techniques included Automated Exposure Control (AEC) and adjustment of mA and kV.FINDINGSNodule in the right middle lobe measures 8 mm, unchanged from 2 days ago. This is larger than in 04/15/2019 CT abdomen pelvis where it was measured at [address] for more complete evaluation. Surveillance recommendations will be made at that time.No pneumonia or pleural effusion.The heart is normal in size.The liver is normal in size and configuration. The gallbladder has no inflammation around it. The spleen is normal in size and shape. The adrenal glands are normal. The pancreas is normal.Parapelvic cysts are present on both sides. No hydronephrosis. No kidney stones.The bladder is normally distended. It has no wall thickening or perivesical edema.The bowel is not dilated. There is no wall thickening in the bowel or edema around the bowel.Left rectus sheath hematoma is smaller. The bulk of the hematoma today measures about 4.2 x 1.4 x 7.0 cm.Degenerative changes are present in the spine. Superior endplate compression at L2 is stable since 2019.IMPRESSION1. Smaller left rectus sheath hematoma2. Larger right middle lobe lung nodule; recommend chest CT for additional evaluationElectronically signed by: Van Kiser (Apr 04, 2022 14:56:36)
[2022-04-04] MEDS: SYNTHROID 50 mcg TAB PO SCH (15:53)
--- NOTE | 2022-04-04 16:51 | RAD ---
HISTORYRelevant Clinical Information COUGHSTUDYCHEST, 1 VIEWCOMPARISONNoneFINDINGSThe trachea is midline. The cardiac silhouette is unremarkable. The lungs are clear without focal infiltrate or effusion. The bony thorax is unremarkable.IMPRESSIONNo acute cardiopulmonary disease.Electronically signed by: YASMINE VANN (Apr 04, 2022 16:50:51)
[2022-04-04] MEDS ORDERED: TOPROL XL PO SCH (21:00)
[2022-04-04] MEDS: XANAX PO PRN (21:07)
[2022-04-05] MEDS: TESSALON PERLES PO SCH (05:20)
[2022-04-05 06:32] LABS: BASOPHILS % (AUTO) 0.5 % (0.2-1.0); EOSINOPHILS # (AUTO) 0.2 x10^3/uL (0.0-0.2); EOSINOPHILS % (AUTO) 2.4 % (0.9-2.9); HEMATOCRIT 29.8 % (36.0-47.0); LYMPHOCYTES # (AUTO) 1.7 X10^3/uL (1.3-2.9); LYMPHOCYTES % (AUTO) 25.4 % (21.0-51.0); MEAN CORPUSCULAR HEMOGLOBIN 27.5 pg (27.0-34.0); MEAN CORPUSCULAR HGB CONC 33.6 g/dL (33.0-35.0); MEAN CORPUSCULAR VOLUME 81.9 fL (80.0-100.0); MEAN PLATELET VOLUME 7.5 fL (7.4-11.0); MONOCYTES # (AUTO) 0.8 x10^3/uL (0.3-0.8); MONOCYTES % (AUTO) 11.9 % (0.0-13.0); NEUTROPHILS # (AUTO) 3.9 x10^3/uL (2.2-4.8); NEUTROPHILS % (AUTO) 59.8 % (42.0-75.0); RED BLOOD COUNT 3.63 X10^6/uL (3.5-5.4); RED CELL DISTRIBUTION WIDTH 13.7 % (11.6-16.5); WHITE BLOOD COUNT 6.5 X10^3/uL (3.6-10.0)
[2022-04-05 06:36] LABS: ALANINE AMINOTRANSFERASE 28 Units/L (12-78); ALBUMIN 3.2 g/dL (3.4-5.0); ALKALINE PHOSPHATASE 39 Units/L (46-116); ASPARTATE AMINO TRANSFERASE 42 Units/L (15-37); BLOOD UREA NITROGEN 17 mg/dL (7-18); CALCIUM 8.8 mg/dL (8.5-10.1); CARBON DIOXIDE 30.3 mmol/L (21-32); CHLORIDE 100 mmol/L (98-107); COR CA(FOR HYPOALB) 9.4 mg/dL (8.5-10.1); CREATININE 1.07 mg/dL (0.55-1.02); SODIUM 138 mmol/L (136-145); TOTAL PROTEIN 7.1 g/dL (6.4-8.2); eGFR NON BLACK RACES 53 (>60)
[2022-04-05] MEDS: MAGNESIUM SULFATE 1 GRAM/100 mL PREMIX 1 G/100 ML BAG IV PRN ×2 (07:53→09:33)
[2022-04-05] MEDS ORDERED: ULTRAM PO PRN (08:38)
[2022-04-05] MEDS: PROTONIX INJ 40 MG VIAL IVP SCH (08:39)
[2022-04-05] MEDS: K-DUR TAB 20 MEQ PO PRN (08:39)
[2022-04-05] MEDS: EFFEXOR XR 37.5 MG CAP 24-HR PO SCH (08:39)
[2022-04-05] MEDS: MIRALAX POWDER (1 DOSE 17 G) PO SCH (08:39)
[2022-04-05 13:12] VITALS: BP 152/68
== END 2022-04-05 12:55 | disposition home health service (06) ==
LOC: MED/SURG 20:10 → ER 20:10 → MED/SURG 23:19
PROVIDERS: ADMIT Internal Medicine; ATTEND Internal Medicine
DX: K21.9 Gastro-esophageal reflux disease without esophagitis; E86.0 Dehydration; M54.89 Other dorsalgia; R10.84 Generalized abdominal pain; Z91.81 History of falling; S00.03XA Contusion of scalp, initial encounter; R51.9 Headache, unspecified; S36.62XA Contusion of rectum, initial encounter; R26.89 Other abnormalities of gait and mobility; M54.2 Cervicalgia; D64.89 Other specified anemias; F41.8 Other specified anxiety disorders; W18.39XA Other fall on same level, initial encounter; I10 Essential (primary) hypertension; R91.1 Solitary pulmonary nodule; S30.1XXA Contusion of abdominal wall, initial encounter